=== PATIENT | male | born 1965 | race American Indian/Alaskan Native ===

== ENCOUNTER 2019-10-29 12:26 | Emergency (ER) | payer OTHER ==
[2019-10-29 12:33] VITALS: BP 123/88
[2019-10-29 13:20] LABS: Basophils # (Auto) 0.1 K/mm3 (0.0-0.1); Basophils % (Auto) 1.1 % (0.0-1.8); Eosinophils # (Auto) 0.3 K/mm3 (0.0-0.4); Hematocrit 49.8 % (35.5-45.6); Hemoglobin 16.8 gm/dl (11.8-15.2); Lymphocytes # (Auto) 2.6 K/mm3 (1.2-5.4); Lymphocytes % (Auto) 24.5 % (13.4-35.0); Mean Corpuscular HGB Conc 34 % (32-34); Mean Corpuscular Volume 84 fl (84-94); Monocytes # (Auto) 0.7 K/mm3 (0.0-0.8); Monocytes % (Auto) 6.7 % (0.0-7.3); Platelet Count 299 K/mm3 (140-440); Red Blood Count 5.95 M/mm3 (3.65-5.03)
[2019-10-29] MEDS ORDERED: ONDANSETRON 4 MG/2 ML INJ IV ONE (13:31)
[2019-10-29] MEDS ORDERED: SODIUM CHLORIDE 0.9% 1000 ML 1,000 ML IV ONE (13:31)
[2019-10-29] MEDS ORDERED: ACETAMINOPHEN 325 MG TAB PO ONE (13:31)
[2019-10-29 13:40] LABS: Alanine Aminotransferase 21 units/L (7-56); Albumin 4.5 g/dL (3.9-5); BUN/Creatinine Ratio 11; Blood Urea Nitrogen 13 mg/dL (9-20); Calcium 10.3 mg/dL (8.4-10.2); Hemolysis Index 22
--- NOTE | 2019-10-29 14:18 | XRay Report ---
CHEST PA AND LATERAL VIEWS INDICATION: SOB. COMPARISON: None FINDINGS: Support devices: None Heart: Normal Lungs/Pleura: No acute pulmonary or pleural findings. IMPRESSION: 1. No significant abnormality. Signer Name: Octavio Ruelas MD Signed: 10/29/2019 2:14 PM Workstation Name: [id number]
--- NOTE | 2019-10-29 14:36 | Emergency Department Report ---
- General Chief Complaint: Dyspnea/Respdistress Stated Complaint: MAYNOR Time Seen by Provider: 10/29/19 13:24 Source: patient, family Mode of arrival: Wheelchair Limitations: No Limitations - History of Present Illness Initial Comments: Patient is a 54-year-old male who presents emergency room with complaints of a productive cough that began 3 days ago. He has associated mucus production. He states he also has difficulty breathing after frequent coughing, generalized weakness, posttussive vomiting, diarrhea. He denies any fever, chest pain, leg swelling. He denies any allergies to medications. He states that he does smoke cigars. He denies any known sick contacts, he denies any known contact with COVID positive patient. He denies any recent travel. - Related Data Previous Rx's Medication Instructions Recorded Last Taken Type Albuterol INH(or & Nicu Only) 2 puff IH QID PRN #8.5 gram 10/29/19 Unknown Rx [ProAir HFA Inhaler] Azithromycin [Zithromax TAB] 250 mg PO QDAY 5 Days #6 tablet 10/29/19 Unknown Rx Benzonatate [Tessalon Perles] 100 mg PO Q8HR PRN #14 capsule 10/29/19 Unknown Rx Prednisone [predniSONE 10 mg 10 mg PO .TAPER #1 tab.ds.pk 10/29/19 Unknown Rx (6-Day Pack, 21 Tabs)] Allergies Allergy/AdvReac Type Severity Reaction Status Date / Time No Known Allergies Allergy Verified 10/29/19 12:32 ED Review of Systems ROS: Stated complaint: MAYNOR Other details as noted in HPI Comment: All other systems reviewed and negative ED Past Medical Hx - Past Medical History Previous Medical History?: No - Surgical History Past Surgical History?: No - Social History Smoking Status: Current Some Day Smoker Substance Use Type: Alcohol - Medications Home Medications: Home Medications Medication Instructions Recorded Confirmed Last Taken Type Albuterol INH(or & Nicu Only) 2 puff IH QID PRN #8.5 gram 10/29/19 Unknown Rx [ProAir HFA Inhaler] Azithromycin [Zithromax TAB] 250 mg PO QDAY 5 Days #6 tablet 10/29/19 Unknown Rx Benzonatate [Tessalon Perles] 100 mg PO Q8HR PRN #14 capsule 10/29/19 Unknown Rx Prednisone [predniSONE 10 mg 10 mg PO .TAPER #1 tab.ds.pk 10/29/19 Unknown Rx (6-Day Pack, 21 Tabs)] ED Physical Exam - General Limitations: No Limitations General appearance: alert, in no apparent distress - Head Head exam: Present: atraumatic, normocephalic - Eye Eye exam: Present: normal appearance - ENT ENT exam: Present: mucous membranes moist - Respiratory Respiratory exam: Present: normal lung sounds bilaterally. Absent: respiratory distress, wheezes, rales, rhonchi, stridor, chest wall tenderness, accessory muscle use, decreased breath sounds, prolonged expiratory - Cardiovascular Cardiovascular Exam: Present: regular rate, normal rhythm, normal heart sounds. Absent: systolic murmur, diastolic murmur, rubs, gallop - Neurological Exam Neurological exam: Present: alert, oriented X3 - Psychiatric Psychiatric exam: Present: normal affect, normal mood - Skin Skin exam: Present: warm, dry, intact ED Course Vital Signs 10/29/19 12:29 Temperature 98.3 F Pulse Rate 93 H Respiratory 22 Rate Blood Pressure 123/88 O2 Sat by Pulse 98 Oximetry ED Medical Decision Making - Lab Data Result diagrams: 10/29/19 13:08 10/29/19 13:08 Lab Results 10/29/19 10/29/19 Range/Units 13:08 13:08 WBC 10.5 (4.5-11.0) K/mm3 RBC 5.95 H (3.65-5.03) M/mm3 Hgb 16.8 H (11.8-15.2) gm/dl Hct 49.8 H (35.5-45.6) % MCV 84 (84-94) fl MCH 28 (28-32) pg MCHC 34 (32-34) % RDW 15.0 (13.2-15.2) % Plt Count 299 (140-440) K/mm3 Lymph % (Auto) 24.5 (13.4-35.0) % [place] % (Auto) 6.7 (0.0-7.3) % Eos % (Auto) 3.0 (0.0-4.3) % Baso % (Auto) 1.1 (0.0-1.8) % Lymph # 2.6 (1.2-5.4) K/mm3 [place] # 0.7 (0.0-0.8) K/mm3 Eos # 0.3 (0.0-0.4) K/mm3 Baso # 0.1 (0.0-0.1) K/mm3 Seg Neutrophils % 64.7 (40.0-70.0) % Seg Neutrophils # 6.8 (1.8-7.7) K/mm3 Sodium 138 (137-145) mmol/L Potassium 4.2 (3.6-5.0) mmol/L Chloride 99.2 (98-107) mmol/L Carbon Dioxide 26 (22-30) mmol/L Anion Gap 17 mmol/L BUN 13 (9-20) mg/dL Creatinine 1.2 (0.8-1.5) mg/dL Estimated GFR > 60 ml/min BUN/Creatinine Ratio 11 % Glucose 106 H (75-100) mg/dL Calcium 10.3 H (8.4-10.2) mg/dL Total Bilirubin 0.50 (0.1-1.2) mg/dL AST 20 (5-40) units/L ALT 21 (7-56) units/L Alkaline Phosphatase 129 (35-129) units/L Total Protein 7.4 (6.3-8.2) g/dL Albumin 4.5 (3.9-5) g/dL Albumin/Globulin Ratio 1.6 % - Radiology Data Radiology results: report reviewed CHEST PA AND LATERAL VIEWS INDICATION: SOB. COMPARISON: None FINDINGS: Support devices: None Heart: Normal Lungs/Pleura: No acute pulmonary or pleural findings. IMPRESSION: 1. No significant abnormality. Signer Name: Octavio Ruelas MD Signed: 10/29/2019 2:14 PM Workstation Name: [id number] Transcribed By: TM Dictated By: Octavio Ruelas MD Electronically Authenticated By: Octavio Ruelas MD Signed Date/Time: 10/29/19 1414 DD/ 1413 TD/TT: - Medical Decision Making Patient is a 54-year-old male who presents emergency room with complaints of a productive cough that began 3 days ago. He has associated mucus production. He states he also has difficulty breathing after frequent coughing, generalized weakness, posttussive vomiting, diarrhea. He denies any fever, chest pain, leg swelling. He denies any allergies to medications. He states that he does smoke cigars. He denies any known sick contacts, he denies any known contact with C OVID positive patient. He denies any recent travel. Vitals are normal. No abnormality on physical exam as documented in chart. Labs are stable. Chest x- ray 1. No significant abnormality. Patient was ambulated in the emergency department by THAD Khan and maintained sats of 96% or greater on room air. Patient will be treated for acute bronchitis. Given prescription for azithromycin, prednisone, Tessalon Perles, albuterol inhaler. advised pt Please take medication as prescribed. Please stop tobacco use. Increase your fluid intake over the next several days. May take Tylenol as needed for fever or body aches. Follow-up with a primary care doctor for reexamination. Return to the emergency room for any new or worsening symptoms including but not limited to difficulty breathing, shortness of breath, chest pain, high fevers not controlled by Tylenol, unable to tolerate by mouth intake, etc. Please self quarantine for 2 weeks. Please do not go out in public. If you are around ot hers at home please wear a mask. If you need to cough or sneeze please do so in a napkin and throw it away and immediately wash your hands. Wash your hands frequently. Wipe everything down frequently. Discussed with patient to discuss with their primary care doctor about COVID-19 testing. - Differential Diagnosis URI, PNA, acute bronchitis, reactive airway, viral syndrome, COVID-19 Critical care attestation.: If time is entered above; I have spent that time in minutes in the direct care of this critically ill patient, excluding procedure time. ED Disposition Clinical Impression: Acute bronchitis Qualifiers: Bronchitis organism: unspecified organism Qualified Code(s): J20.9 - Acute bronchitis, unspecified Disposition: DC-01 TO HOME OR SELFCARE Is pt being admited?: No Does the pt Need Aspirin: No Condition: Stable Instructions: Acute Bronchitis (ED) Additional Instructions: Please take medication as prescribed. Please stop tobacco use. Increase your fluid intake over the next several days. May take Tylenol as needed for fever or body aches. Follow-up with her primary care doctor for reexamination. Return to the emergency room for any new or worsening symptoms including but not limited to difficulty breathing, shortness of breath, chest pain, high fevers not controlled by Tylenol, unable to tolerate by mouth intake, etc. Please self quarantine for 2 weeks. Please do not go out in public. If you are around others at home please wear a mask. If you need to cough or sneeze please do so in a napkin and throw it away and immediately wash your hands. Wash your hands frequently. Wipe everything down frequently. Prescriptions: Prednisone [predniSONE 10 mg (6-Day Pack, 21 Tabs)] 10 mg PO .TAPER #1 tab.ds.pk Albuterol INH(or & Nicu Only) [ProAir HFA Inhaler] 2 puff IH QID PRN #8.5 gram PRN Reason: Shortness Of Breath Benzonatate [Tessalon Perles] 100 mg PO Q8HR PRN #14 capsule PRN Reason: cough Azithromycin [Zithromax TAB] 250 mg PO QDAY 5 Days #6 tablet Referrals: TRISTIAN STRICKLAND MD [Staff Physician] - 3-5 Days [facility] [Provider Group] - 3-5 Days Forms: Work/School Release Form(ED) Time of Disposition: 14:33 Print Language: BENGALI
== END 2019-10-29 15:13 | disposition home or self-care (01) ==
LOC: ED 12:26
DX: J20.9 Acute bronchitis, unspecified (principal); F17.200 Nicotine dependence, unspecified, uncomplicated; Z79.899 Other long term (current) drug therapy
CPT/HCPCS: 36415; 71046; 80053; 85025; 96361; 96374; 99284; J2405; J7030